=== PATIENT | male | born 1985 | race Caucasian/White ===

== ENCOUNTER 2020-02-03 04:44 | Emergency (ER) | payer SELFPAY ==
--- OUTSIDE RECORDS SUMMARY | 2020-02-03 04:47 | XMS REPORT | Summary of Care ---
:1985 Author Organization [facility] Address [address] [place] [id number] Care Team Providers Name Role Phone Pcp, Does Not Have A Primary Care Provider Reason for Referral (Routine) Status Reason Specialty Diagnoses / Referred By Referred To Procedures Contact Contact New Request JAYDE-OTOLARYNGOLOG Diagnoses Epistaxis Carlos Shearer Y Procedures Discharge Follow-Up: Specialty Service JAYDE-OTOLARYNGOLOGY; 1 Week SENIOR SYSTEM OPERATOR [address] [place] [phone] Reason for Visit Reason Comments Shortness of Breath Auth/Cert Status Reason Specialty Diagnoses / Referred By Referred To Procedures Contact Contact Emergency Medicine Diagnoses shortness of breath [facility] Emergency Dept [address] [place], [place] [id number] Fax: Encounter Details Date Type Department Care Team Description 02/01/2020 Emergency ADC-Emergency Carlos Shearer FNP Epistaxis (Primary Dx); Department [address] [place] [address] Anxiety [address] [facility] [phone] [place] [id number] Allergies No Known Allergiesdocumented as of this encounter (statuses as of 02/01/2020) Medications Medication Sig Dispensed Refills Start Date End Date Status hydrOXYzine 25 mg Take 1 tablet by 20 tablet 0 02/01/2020 Active tabletIndications: mouth every 6 Anxiety (six) hours as needed for Anxiety. documented as of this encounter (statuses as of 02/01/2020) Active Problems No known active problemsdocumented as of this encounter (statuses as of 02/01/2020) Social History Tobacco Use Types Packs/Day Years Used Date Never Assessed Sex Assigned at Date Recorded Not on file Job Start Date Occupation Industry Not on file Not on file Not on file Travel History Travel Start Travel End No recent travel history available. COVID-19 Exposure Response Date Recorded In the last month, have you been in contact with No / Unsure 02/01/2020 2:28 AM CDT someone who was confirmed or suspected to have Coronavirus / COVID-19? documented as of this encounter Last Filed Vital Signs Vital Sign Reading Time Taken Comments Blood Pressure 135/96 02/01/2020 3:00 AM CDT Pulse 94 02/01/2020 3:00 AM CDT Temperature 36.4 C (97.6 F) 02/01/2020 2:29 AM CDT Respiratory Rate 15 02/01/2020 3:00 AM CDT Oxygen Saturation 97% 02/01/2020 3:00 AM CDT Inhaled Oxygen Concentration - - Weight 90.7 kg (200 lb) 02/01/2020 2:40 AM CDT Height - - Body Mass Index - - documented in this encounter Discharge Instructions InstructionsCarlos Shearer FNP - 02/01/2020 DIAGNOSIS ICD-10-CM ICD-9-CM 1. Epistaxis R04.0 784.7 2. Anxiety F41.9 300.00 NO LIFE-THREATENING FINDINGS ON TODAY'S EXAM. SPECIAL CARE INSTRUCTIONS: Stay well hydrated Follow up with PCP/ ENT Return to ER as needed Do not blow your nose. Sneeze with your mouth open. FOLLOW-UP RECOMMENDATIONS: RECOMMEND FOLLOW-UP WITH A PRIMARY CARE PROVIDER OR SPECIALIST IN 2-5 DAYS, ESPECIALLY IF NO IMPROVEMENT IN SYMPTOMS. TO FOLLOW-UP WITHIN THE [facility], TRY THESE OPTIONS (CLINIC APPOINTMENTS AVAILABLE ON XUWD-OV-IKNA BASIS): 1. SCHEDULE AN APPOINTMENT ONLINE AT WWW[facility] 2. OR CALL THE [facility] AT OR 3. OR CALL YOUR [facility] PHYSICIAN'S OFFICE DIRECTLY IF YOU ARE ALREADY AN ESTABLISHED [facility] PATIENT. OR, YOU MAY FOLLOW-UP WITH A PROVIDER OF YOUR CHOICE, SUCH : 1. A PHYSICIAN OF YOUR CHOICE 2. [facility], . LOCATIONS IN [facility] 3. [facility], [address] [place], [place]; [phone] RETURN TO ER FOR WORSENING OF SYMPTOMS. AttachmentsThe following attachments cannot be sent through Care Everywhere. Anxiety, Your Body's Response to (Tajik)Epistaxis (Adult) (Tajik)documented in this encounter Plan of Treatment Health Maintenance Due Date Last Done Comments VARICELLA VACCINES (1 of 2 - 1984 2-dose childhood series) DTaP,Tdap,and Td Vaccines (1 - 1994 Tdap) Depression Screening 1995 INFLUENZA VACCINE (#1) 2020 PNEUMOCOCCAL 0-64 YEARS COMBINED Aged Out No longer eligible based on SERIES patient's age to complete this topic documented as of this encounter Procedures Procedure Name Priority Date/Time Associated Comments Diagnosis PROFILE / HEMOGRAM STAT 02/01/2020 2:44 AM Epistaxis Re sults for this CDT procedure are i n the results section. ASSIGNMENT OF Routine 02/01/2020 2:21 AM BENEFITS CDT CONSENT/REFUSAL FOR Routine 02/01/2020 2:20 AM DIAGNOSIS AND CDT TREATMENT NOTICE OF PRIVACY Routine 02/01/2020 2:19 AM PRACTICES CDT documented in this encounter Results PROFILE / HEMOGRAM (02/01/2020 2:44 AM CDT) Pathologist Sig nature WBC 6.64 4.20 - 10.70 [facility] 10*3/L [facility] RBC 5.29 4.26 - 5.52 [facility] 10*6/L [facility] HGB 17.2 (H) 12.2 - 16.4 g/dL [facility] HCT 48.4 38.4 - 49.3 % [facility] MCH 32.5 26.1 - 32.7 pg [facility] MCV 91.5 81.7 - 95.6 fL [facility] MCHC 35.5 (H) 31.2 - 35.0 g/dL [facility] PLT 229 150 - 328 10*3/L [facility] MPV 9.2 (L) 9.8 - 13.0 fL [facility] RDW-CV 11.6 (L) 12.1 - 15.4 % [facility] RDW-SD 38.9 38.5 - 51.6 fL [facility] NRBC x10^3 <0.01 10*3/L [facility] NRBC/100 WBC 0.0 0.0 - 10.0 /100 [facility] IPF % [facility] Specimen Blood - VENOUS Performing Organization Address City/State/Zipcode Phone Number [facility] CLIA: [id number], [address] [place], [place] [address] documented in this encounter Visit Diagnoses Diagnosis Epistaxis - Primary Anxiety Anxiety state, unspecified documented in this encounter Administered Medications Medication Order MAR Action Action Date Dose Rate Site hydrOXYzine (ATARAX) tablet 25 mg Given 02/01/2020 2:44 AM CDT 25 mg 25 mg, Oral, ONCE, 1 dose, 02/01/20 at 0345, GABRIELA documented in this encounter Insurance Payer Benefit Plan Subscriber ID Effective Dates Phone Address Type / Group BCBS [facility] [id number] 2020-Prese [phone] [address] PPO/POS [place] - OUT OF 7 [id number] [place] [address] documented as of this encounter
--- OUTSIDE RECORDS SUMMARY | 2020-02-03 04:47 | XMS REPORT | Continuity of Care Document ---
:1985 Author Organization [facility] t Address [address] [place] [address] Care Team Providers Name Role Phone Janki PÉREZ Attending Clinician Problems This patient has no known problems. Allergies, Adverse Reactions, Alerts This patient has no known allergies or adverse reactions. Medications This patient has no known medications. Procedures This patient has no known procedures. Encounters Start End Encounter Admission Attending Care Care Encounter Source Date/Time Date/Time Type Type Clinicians Facility Department ID 2020-02-01 2020-02-01 Emergency Shearer [facility] [id number] 02:39:03 03:23:00 Carlos Garcia [id number] [place] [id number] [place] [id number] Results This patient has no known results.
[2020-02-03] MEDS ORDERED: ONDANSETRON 4 MG/2 ML VIAL ONE (05:38)
[2020-02-03] MEDS ORDERED: NA CHLORIDE 0.9% 1,000 ML ONE (05:38)
[2020-02-03] MEDS ORDERED: FAMOTIDINE 20 MG/2 ML VIAL IV ONE (05:38)
[2020-02-03 05:52] LABS: Absolute Lymphocytes (CBC) 1.4 K/uL (0.7-4.9); Basophils % 0.4 % (0-1.3); Hematocrit 46.3 % (39.6-49.0); Lymphocytes % 28.8 % (15.3-44.8)
[2020-02-03 05:55] LABS: ALT/SGPT 62 U/L (12-78); AST/SGOT 105 U/L (15-37); Alkaline Phosphatase 57 U/L (45-117); BUN Blood Urea Nitrogen 9 mg/dL (7-18); Bicarbonate 25 mmol/L (21-32); Bilirubin Direct 0.2 mg/dL (0-0.2); Bilirubin Total 0.9 mg/dL (0.2-1.0); Glucose Level 107 mg/dL (74-106); Lipase 93 U/L (73-393); Potassium 3.8 mmol/L (3.5-5.1); Protein, Total 7.4 g/dL (6.4-8.2); Sodium Level 142 mmol/L (136-145)
[2020-02-03 06:32] LABS: Barbiturates NEGATIVE (NEGATIVE); Benzodiazepines NEGATIVE (NEGATIVE); Cocaine NEGATIVE (NEGATIVE); METHAMPHETAM NEGATIVE (NEGATIVE); Methadone NEGATIVE (NEGATIVE); Opiates NEGATIVE (NEGATIVE); Phencyclidine NEGATIVE (NEGATIVE); THC Cannibis NEGATIVE (NEGATIVE)
--- NOTE | 2020-02-03 06:46 | EDPHYS ---
Physician Documentation [facility] Name: Obdulio Guillen Age: 34 yrs Sex: Male : 1985 Arrival Date: 02/03/2020 Time: 04:48 Bed 13 Private MD: NBA Physician Wolfgang Carrero HPI: 02/02 05:17 This 34 yrs old Male presents to ER via Ambulatory with complaints of Body mh7 Aches, Vomiting. 05:17 The patient presents to the emergency department with nausea, that is moderate, mh7 vomiting, that is intermittent. Onset: The symptoms/episode began/occurred 1 week(s) ago. Possible causes: unknown. The symptoms are aggravated by nothing. The symptoms are alleviated by nothing. Associated signs and symptoms: Pertinent positives: Body aches, sore throat, headaches, Pertinent negatives: anorexia, belching, constipation, diarrhea, dysuria, fever, flatulence, GI bleeding, hematuria, nausea, vomiting. Severity of symptoms: At their worst the symptoms were moderate 2 day(s) ago, in the emergency department the symptoms have improved moderately. Patient states nausea, vomiting, body aches, headaches intermittently over the past month that began again one week ago. He has also had some intermittent upper abdominal pain. Denies any fever, chest pain, cough, SOB, diarrhea, or dysuria.. Historical: - Allergies: 05:00 No Known Allergies; jb4 - Home Meds: 05:00 None [Active]; jb4 - PMHx: 05:00 Alcoholism; jb4 - PSHx: 05:00 None; jb4 - Immunization history:: Adult Immunizations up to date. - Social history:: Smoking status: Patient denies any tobacco usage or history of. Patient uses alcohol, patient/guardian reports recent binge of alcohol consumption. Patient/guardian denies using street drugs. ROS: 05:17 Constitutional: Negative for fever, chills, and weight loss, Eyes: Negative for injury, mh7 pain, redness, and discharge, Neck: Negative for injury, pain, and swelling, Cardiovascular: Negative for chest pain, palpitations, and edema, Respiratory: Negative for shortness of breath, cough, wheezing, and pleuritic chest pain, Back: Negative for injury and pain, : Negative for injury, bleeding, discharge, and swelling, MS/Extremity: Negative for injury and deformity, Skin: Negative for injury, rash, and discoloration, Neuro: Negative for headache, weakness, numbness, tingling, and seizure, Psych: Negative for depression, anxiety, suicide ideation, homicidal ideation, and hallucinations, Allergy/Immunology: Negative for hives, rash, and allergies, Endocrine: Negative for neck swelling, polydipsia, polyuria, polyphagia, and marked weight changes, Hematologic/Lymphatic: Negative for swollen nodes, abnormal bleeding, and unusual bruising. Exam: 05:17 Constitutional: This is a well developed, well nourished patient who is awake, alert, mh7 and in no acute distress. Head/Face: Normocephalic, atraumatic. Eyes: Pupils equal round and reactive to light, extra-ocular motions intact. Lids and lashes normal. Conjunctiva and sclera are non-icteric and not injected. Cornea within normal limits. Periorbital areas with no swelling, redness, or edema. 05:17 Neck: Trachea midline, no thyromegaly or masses palpated, and no cervical lymphadenopathy. Supple, full range of motion without nuchal rigidity, or vertebral point tenderness. No Meningismus. Chest/axilla: Normal chest wall appearance and motion. Nontender with no deformity. No lesions are appreciated. Cardiovascular: Regular rate and rhythm with a normal S1 and S2. No gallops, murmurs, or rubs. Normal PMI, no JVD. No pulse deficits. Respiratory: Lungs have equal breath sounds bilaterally, clear to auscultation and percussion. No rales, rhonchi or wheezes noted. No increased work of breathing, no retractions or nasal flaring. Back: No spinal tenderness. No costovertebral tenderness. Full range of motion. Skin: Warm, dry with normal turgor. Normal color with no rashes, no lesions, and no evidence of cellulitis. MS/ Extremity: Pulses equal, no cyanosis. Neurovascular intact. Full, normal range of motion. Neuro: Awake and alert, GCS 15, oriented to person, place, time, and situation. Cranial nerves II-XII grossly intact. Motor strength 5/5 in all extremities. Sensory grossly intact. Cerebellar exam normal. Normal gait. Psych: Awake, alert, with orientation to person, place and time. Behavior, mood, and affect are within normal limits. 05:17 ENT: External ear(s): are unremarkable, Nose: is normal, Mouth: Lips: normal, Oral mucosa: dry, Gums: normal with healthy appearance, abscess, is not appreciated, drooling, is not appreciated, Posterior pharynx: Airway: normal, Tonsils: with erythema, Uvula: normal, swelling, is not appreciated, erythema, that is mild, exudate, is not appreciated, peritonsillar mass, is not appreciated, pooling of secretions, is not appreciated, Dental exam: normal, Voice: is normal. 07:02 Abdomen/GI: Soft, non-tender, with normal bowel sounds. No distension or tympany. No mh7 guarding or rebound. No evidence of tenderness throughout. Vital Signs: 05:00 BP 135 / 102; Pulse 97; Resp 16; Temp 98.1(O); Pulse Ox 97% on R/A; Weight 83.91 kg jb4 (R); Height 5 ft. 10 in. (177.80 cm) (R); Pain 10/10; 06:00 BP 118 / 81; Pulse 86; Resp 16; Pulse Ox 98% on R/A; jb4 06:53 BP 129 / 89; Pulse 83; Resp 16; Pulse Ox 98% on R/A; lp1 05:00 Body Mass Index 26.54 (83.91 kg, 177.80 cm) jb4 MDM: 05:12 Patient medically screened. mh7 06:43 Differential diagnosis: gastritis, pancreatitis, Viral Syndrome, Alcohol Abuse, Alcohol mh7 Intoxication, Dehydration. Data reviewed: vital signs, nurses notes, lab test result(s), CBC, drug level(s), electrolytes, urinalysis, urine drug screen. Data interpreted: satellite project site monitor: rate is 86 beats/min, rhythm is normal sinus rhythm, regular, Interpretation: normal rate, normal rhythm, Pulse oximetry: on room air is 98 %. Interpretation: normal. Counseling: I had a detailed discussion with the patient and/or guardian regarding: the historical points, exam findings, and any diagnostic results supporting the discharge/admit diagnosis, lab results, the need for outpatient follow up, to return to the emergency department if symptoms worsen or persist or if there are any questions or concerns that arise at home. Response to treatment: the patient's symptoms have resolved after treatment, the patient's blood pressure is in an acceptable range, mental status has returned to baseline, the patient no longer shows bradycardia, the patient is not short of breath, the patient is not tachycardic, the patient's pain is gone, the patient's temperature has normalized. 02/02 05:15 Order name: Basic Metabolic Panel; Complete [facility]: [facility] 02/02 05:15 Order name: CBC with Diff; Complete Time: 06:04 [facility] 02/02 05:15 Order name: Hepatic Function; Complete Time: 06:04 7 02/02 05:15 Order name: Lipase; Complete Time: 06:04 7 02/02 05:15 Order name: Rapid Strep; Complete [facility]: 06:04 [facility] 02/02 05:15 Order name: Alcohol Level; Complete Time: 06:04 [facility] 02/02 05:15 Order name: IV Saline Lock; Complete Time: 05:26 [facility] 02/02 05:15 Order name: Labs collected and sent; Complete Time: 05:27 [facility] 02/02 05:15 Order name: UDS; Complete Time: 06:38 7 02/02 06:03 Order name: Throat Culture [facility] 02/02 06:24 Order name: Urine Dipstick--Ancillary (enter results) ar5 02/02 05:15 Order name: Urine Dipstick-Ancillary (obtain specimen); Complete Time: 06:10 mh7 Administered Medications: 05:32 Drug: Zofran (Ondansetron) 4 mg Route: IVP; Site: right forearm; jb4 06:15 Follow up: Response: No adverse reaction; Nausea is decreased 4 05:35 Drug: NS 0.9% 1000 ml Route: IV; Rate: 1000 ml; Site: right forearm; jb4 06:54 Follow up: IV Status: Completed infusion; IV Intake: 1000ml lp1 05:35 Drug: Pepcid 20 mg Route: IVP; Site: right forearm; jb4 06:15 Follow up: Response: No adverse reaction jb4 Disposition: 02/03/20 06:46 Discharged to Home. Impression: Alcohol Abuse, Alcohol Intoxication, Vomiting. - Condition is Stable. - Discharge Instructions: Alcohol Intoxication, Eism-nt-Iygr, Nausea and Vomiting, Adult, Cqox-ah-Mayk, Alcohol Abuse and Nutrition. - Prescriptions for Zofran ODT 4 mg Oral tablet,disintegrating - place 1 tablet by TRANSLINGUAL route every 8 hours; 6 tablet. Pepcid 20 mg Oral Tablet - take 1 tablet by ORAL route every 12 hours for 5 days; 10 tablet. - Medication Reconciliation Form, Thank You Letter, Antibiotic Education, Prescription Opioid Use form. - Follow up: Private Physician; When: 1 - 2 days; Reason: Worsening of condition, Recheck today's complaints, Continuance of care, Re-evaluation by your physician. - Problem is an ongoing problem. - Symptoms have improved. Signatures: Dispatcher [employer] EDMS Kimberlee Martinez RN RN lp1 Jake Mendoza RN RN jb4 Wolfgang Carrero MD MD mh7 Corrections: (The following items were deleted from the chart) 06:54 06:46 02/03/2020 06:46 Discharged to Home. Impression: Alcohol Abuse; Alcohol lp1 Intoxication; Vomiting. Condition is Stable. Forms are Medication Reconciliation Form, Thank You Letter, Antibiotic Education, Prescription Opioid Use. Follow up: Private Physician; When: 1 - 2 days; Reason: Worsening of condition, Recheck today's complaints, Continuance of care, Re-evaluation by your physician. Problem is an ongoing problem. Symptoms have improved. mh7
--- NOTE | 2020-02-03 06:46 | ER ---
Nurse's Notes [facility] Name: Obdulio Guillen Age: 34 yrs Sex: Male : 1985 Arrival Date: 02/03/2020 Time: 04:48 Bed 13 Private MD: Diagnosis: Alcohol Abuse;Alcohol Intoxication;Vomiting Presentation: 02/02 05:00 Chief complaint: Patient states: I have had body aches, nausea, and vomiting that jb4 started a month ago and have been progressively getting worse. I have been sober for 3 years, but 3 days ago I started binge drinking to deal with the pain. My last drink was sometime last night. 05:00 Coronavirus screen: Proceed with normal triage. Ebola Screen: No symptoms or risks jb4 identified at this time. Initial Sepsis Screen: Does the patient meet any 2 criteria? HR > 90 bpm. Yes Does the patient have a suspected source of infection? No. Patient's initial sepsis screen is negative. Risk Assessment: Do you want to hurt yourself or someone else? Patient reports no desire to harm self or others. Onset of symptoms was December 21, 2019. Transition of care: patient was not received from another setting of care. 05:00 Method Of Arrival: Ambulatory jb4 05:00 Acuity: THOMAS 3 jb4 Triage Assessment: 05:00 Headache History: The patient has had previous headaches and this one is similar to jb4 previous episodes. General: Appears in no apparent distress. uncomfortable, Behavior is calm, cooperative, appropriate for age. Pain: Also complains of no other associated symptoms. Historical: - Allergies: 05:00 No Known Allergies; jb4 - Home Meds: 05:00 None [Active]; jb4 - PMHx: 05:00 Alcoholism; jb4 - PSHx: 05:00 None; jb4 - Immunization history:: Adult Immunizations up to date. - Social history:: Smoking status: Patient denies any tobacco usage or history of. Patient uses alcohol, patient/guardian reports recent binge of alcohol consumption. Patient/guardian denies using street drugs. Screenin:00 Abuse screen: Denies threats or abuse. Nutritional screening: No deficits noted. jb4 Tuberculosis screening: No symptoms or risk factors identified. Fall Risk None identified. Assessment: 05:00 General: Appears in no apparent distress. uncomfortable, Behavior is calm, cooperative, jb4 appropriate for age. Pain: Complains of pain in Generalized body aches, headache, abdominal pain. Pain does not radiate. Pain currently is 10 out of 10 on a pain scale. Quality of pain is described as aching, Pain began 1 month ago. Neuro: Level of Consciousness is awake, alert, obeys commands, Oriented to person, place, time, situation. Cardiovascular: Patient's skin is warm and dry. Respiratory: Airway is patent Respiratory effort is even, unlabored, Respiratory pattern is regular, symmetrical. GI: Reports lower abdominal pain, upper abdominal pain, nausea. : No signs and/or symptoms were reported regarding the genitourinary system. EENT: Oral mucosa is dry. Throat is clear is reddened with gag reflex present, Reports soar throat for 1 week.. Derm: Skin is intact, Skin is pink, warm \T\ dry. Musculoskeletal: Circulation, motion, and sensation intact. Range of motion: intact in all extremities. 06:00 Reassessment: Patient appears in no apparent distress at this time. Patient and/or jb4 family updated on plan of care and expected duration. Pain level reassessed. Patient is alert, oriented x 3, equal unlabored respirations, skin warm/dry/pink. Pt report nausea has decreased. Report given to SHARON Mohan. Vital Signs: 05:00 BP 135 / 102; Pulse 97; Resp 16; Temp 98.1(O); Pulse Ox 97% on R/A; Weight 83.91 kg jb4 (R); Height 5 ft. 10 in. (177.80 cm) (R); Pain 10/10; 06:00 BP 118 / 81; Pulse 86; Resp 16; Pulse Ox 98% on R/A; jb4 06:53 BP 129 / 89; Pulse 83; Resp 16; Pulse Ox 98% on R/A; lp1 05:00 Body Mass Index 26.54 (83.91 kg, 177.80 cm) jb4 ED Course: 04:48 Patient arrived in ED. ds1 04:51 Jake Mendoza, SHARON is Primary Nurse. jb4 04:55 Wolfgang Carrero MD is Attending Physician. mh7 05:00 Arm band placed on right wrist. jb4 05:00 Patient has correct armband on for positive identification. Bed in low position. Call jb4 light in reach. Side rails up X 1. Pulse ox on. NIBP on. 05:05 Triage completed. jb4 05:25 Initial lab(s) drawn, by me, sent to lab. Strep swab sent to lab. Inserted saline lock: jb4 20 gauge in right forearm, using aseptic technique. Blood collected. 06:43 Throat Culture Sent. lp1 06:53 No provider procedures requiring assistance completed. IV discontinued, No lp1 redness/swelling at site. Pressure dressing applied. Administered Medications: 05:32 Drug: Zofran (Ondansetron) 4 mg Route: IVP; Site: right forearm; jb4 06:15 Follow up: Response: No adverse reaction; Nausea is decreased jb4 05:35 Drug: NS 0.9% 1000 ml Route: IV; Rate: 1000 ml; Site: right forearm; jb4 06:54 Follow up: IV Status: Completed infusion; IV Intake: 1000ml lp1 05:35 Drug: Pepcid 20 mg Route: IVP; Site: right forearm; jb4 06:15 Follow up: Response: No adverse reaction jb4 Intake: 06:54 IV: 1000ml; Total: 1000ml. lp1 Outcome: 06:46 Discharge ordered by . 7 06:54 Discharged to home ambulatory. lp1 06:54 Condition: good 06:54 Discharge instructions given to patient, Instructed on discharge instructions, follow up and referral plans. medication usage, Demonstrated understanding of instructions, follow-up care, medications, Prescriptions given X 2. 06:54 Patient left the ED. lp1 Signatures: Laney Delgadillo ds1 Kimberlee Martinez RN RN lp1 Jake Mendoza RN RN jb4 Wolfgang Carrero MD MD 7 Corrections: (The following items were deleted from the chart) 05:39 05:00 GI: Reports nausea, jb4 jb4 05:39 05:00 EENT: No signs and/or symptoms were reported regarding the EENT system. jb4 jb4 06:15 06:00 Reassessment: Patient appears in no apparent distress at this time. No changes jb4 from previously documented assessment. Patient and/or family updated on plan of care and expected duration. Pain level reassessed. jb4
[2020-02-03 07:02] VITALS: TEMP 98.1
[2020-02-03 07:03] VITALS: O2SAT 98
[2020-02-03 07:04] VITALS: BP 129/89
[2020-02-03 09:37] LABS: Urine Blood NEGATIVE (NEG); Urine Glucose NEGATIVE (NEG); Urine Protein 1+ (NEG); Urine pH 7.5 (5.0-7.0)
== END 2020-02-03 06:54 | disposition home or self-care (01) ==
LOC: ER 04:44
DX: F10.229 Alcohol dependence with intoxication, unspecified (principal)
CPT/HCPCS: 36415; 80048; 80076; 80307; 80320; 81003; 83690; 85025; 87070; 87081; 96361; 96374; 96375; 99284; J2405; J7030